=== PATIENT | female | born 1960 | race Two or more races ===

== ENCOUNTER 2016-10-15 16:18 | Emergency (ER) | payer OTHER ==
[~2016-10-15] VITALS: Ht 160 cm; Wt 83.5 kg
[2016-10-15 17:30] VITALS: BP 165/81
--- NOTE | 2016-10-15 17:48 | PHYS DOC ---
Past Medical History Past Medical History: Anemia, Diabetes-Type II, High Cholesterol, Hypertension Past Surgical History: Other Additional Past Surgical Histo: abd surgery "to remove clots around umbilical area" Alcohol Use: None Drug Use: None Adult General Chief Complaint Chief Complaint: NOSEBLEED HPI HPI 55-year-old female with left nares epistaxis. The patient is been having epistaxis for greater than one week. She has been seen in multiple emergency departments and had multiple Rhino Rocket instruments placed with moderate relief. She recently was able to get into her ENT doctors office at [facility] where they performed a nasal cautery with nasal packing. She has been having mild intermittent nose bleeding since then. Currently she denies any nose bleeding. Location left neck. Duration intermittent. Alleviated by packing. Review of systems is negative for chest pain shortness of breath abdominal pain lightheadedness All other review of systems is negative unless otherwise noted in history of present illness. Review of Systems Review of Systems SEE ABOVE. Allergies Allergies Allergies Coded Allergies Type Severity Reaction Last Updated Verified acetaminophen Allergy Intermediate hives 10/15/16 Yes Physical Exam Physical Exam Constitutional: Well developed, well nourished, no acute distress, non-toxic appearance. [] HENT: Normocephalic, atraumatic, bilateral external ears normal, oropharynx moist, no oral exudates, the patient's left and there is tightly packed with gauze without any evidence of bleeding. She denies any bleeding from the posterior aspect of her nasopharynx region. Eyes: PERRLA, EOMI, conjunctiva normal, no discharge. Neck: Normal range of motion, no tenderness, supple, no stridor. [] Cardiovascular:Heart rate regular rhythm, no murmur Lungs & Thorax: Bilateral breath sounds clear to auscultation [] Abdomen: Bowel sounds normal, soft, no tenderness, no masses, no pulsatile masses. Skin: Warm, dry, no erythema, no rash. [] Back: No tenderness, no CVA tenderness. [] Extremities: No tenderness, no cyanosis, no clubbing, ROM intact, no edema. Neurologic: Alert and oriented X 3, normal motor function, normal sensory function, no focal deficits noted. Psychologic: Affect normal, judgement normal, mood normal. [] Current Patient Data Vital Signs Vital Signs Date Time Temp Pulse Resp B/P Pulse Ox O2 Delivery O2 Flow Rate FiO2 2/21/17 17:30 97.9 103 20 95 Room Air 97.9 EKG EKG [] Radiology/Procedures Radiology/Procedures [] Course & Med Decision Making Course & Med Decision Making Pertinent Labs and Imaging studies reviewed. (See chart for details) [] 55-year-old female presenting to the emergency department today with intermittent nose bleeding which currently is not present. She currently has an manager of network at [facility]. Currently the patient has tight packing in her left neck. I discussed the options including removal of the packing and placing a Rhino Rocket. I explained to her that this probably is not the best option is the packing that the manager of network placed is probably working better than an inch should mention our emergency department abuse. Currently the patient is not having epistaxis. I recommended she follow up with her manager of network tomorrow morning for further evaluation workup and care. The patient desired to go to [facility] emergency department to be evaluated. I called their emergency department and explained to their doctor that she would be coming by private vehicle. The patient is currently stable for transfer. Dragon Disclaimer Dragon Disclaimer This electronic medical record was generated, in whole or in part, using a voice recognition dictation system. Departure Departure Impression: Primary Impression: Epistaxis Disposition: 01 HOME, SELF-CARE Condition: STABLE Referrals: PIA DAMON MD (PCP) Patient Instructions: Nosebleed Additional Instructions: Thank you for allowing us to participate in your care today. Follow-up with your ENT tomorrow morning for evaluation and care. If you do not have a primary care provider you can ask for a list of our primary care providers. Return to the emergency department you have any new or concerning findings. This should be evaluated by the primary care physician and any necessary consulting services for continued management within a few days after discharge. Return to emergency room if you have any new or concerning symptoms including but not limited to fever, chills, nausea, vomiting, intractable pain, any new rashes, chest pain, shortness of air, uncontrolled bleeding, difficulty breathing, and/or vision loss. LUCINA RICE MD Oct 15, 2016 17:48
== END 2016-10-15 18:01 | disposition home or self-care (01) ==
LOC: ER 16:18
DX: R04.0 Epistaxis (principal); E11.9 Type 2 diabetes mellitus without complications; E78.00 Pure hypercholesterolemia, unspecified; I10 Essential (primary) hypertension; Z88.8 Allergy status to other drugs, medicaments and biological substances
CPT/HCPCS: 99281

== ENCOUNTER → 2017-06-24 | Outpatient (CLI) | payer OTHER ==
--- NOTE | 2017-06-24 10:10 | RAD ---
DATE: 06/24/2017 EXAM: DIGITAL SCREEN BILAT W/CAD HISTORY: Routine screening COMPARISON: 05/29/2016 This study was interpreted with the benefit of Computerized Aided Detection (CAD). The breast parenchyma shows scattered fibroglandular densities. Breast parenchyma level B. FINDINGS: No new or enlarging breast densities are seen. Benign type calcifications are present. No suspicious microcalcifications have developed. IMPRESSION: Stable mammograms without evidence of malignancy. BI-RADS CATEGORY: 2 BENIGN FINDING(S) RECOMMENDED FOLLOW-UP: 12M 12 MONTH FOLLOW-UP PQRS compliance statement: Patient information was entered into a reminder system with a target due date for the next mammogram. Mammography is a sensitive method for finding small breast cancers, but it does not detect them all and is not a substitute for careful clinical examination. A negative mammogram does not negate a clinically suspicious finding and should not result in delay in biopsying a clinically suspicious abnormality. "Our facility is accredited by the [employer] Mammography Program."
== END | disposition home or self-care (01) ==
LOC: MAMMO 07:55
PROVIDERS: ATTEND Family Medicine
DX: Z12.31 Encounter for screening mammogram for malignant neoplasm of breast (principal)
CPT/HCPCS: G0202; 77067

== ENCOUNTER → 2018-07-23 | Outpatient (CLI) | payer MEDICARE, OTHER ==
--- NOTE | 2018-07-23 08:42 | RAD ---
DATE: 07/23/2018 EXAM: DIGITAL SCREEN BILAT W/CAD HISTORY: Routine screening COMPARISON: 06/24/2017 This study was interpreted with the benefit of Computerized Aided Detection (CAD). Breast Density: SCATTERED The breast parenchyma shows scattered fibroglandular densities. Breast parenchyma level B. FINDINGS: No new or enlarging breast densities are evident. Scattered benign type calcifications are again seen. No suspicious microcalcifications have developed. IMPRESSION: There is no mammographic evidence of malignancy in either breast. BI-RADS CATEGORY: 2 BENIGN FINDING(S) RECOMMENDED FOLLOW-UP: 12M 12 MONTH FOLLOW-UP PQRS compliance statement: Patient information was entered into a reminder system with a target due date for the next mammogram. Mammography is a sensitive method for finding small breast cancers, but it does not detect them all and is not a substitute for careful clinical examination. A negative mammogram does not negate a clinically suspicious finding and should not result in delay in biopsying a clinically suspicious abnormality. "Our facility is accredited by the [employer] Mammography [employer]."
== END | disposition home or self-care (01) ==
LOC: MAMMO 07:42
PROVIDERS: ATTEND Family Medicine
DX: Z12.31 Encounter for screening mammogram for malignant neoplasm of breast (principal)
CPT/HCPCS: 77067

== ENCOUNTER → 2019-08-02 | Outpatient (CLI) | payer MEDICARE ==
--- NOTE | 2019-08-03 20:02 | RAD ---
DATE: 08/02/2019 EXAM: DIGITAL SCREEN BILAT W/CAD HISTORY: Routine screening COMPARISON: 04/13/2015, 05/29/2016, 06/24/2017, 07/23/2018 This study was interpreted with the benefit of Computerized Aided Detection (CAD). Breast Density: SCATTERED The breast parenchyma shows scattered fibroglandular densities. Breast parenchyma level B. FINDINGS: Benign calcification is present. No masses or distortion in the interval. IMPRESSION: Stable BI-RADS CATEGORY: 1 NEGATIVE RECOMMENDED FOLLOW-UP: 12M 12 MONTH FOLLOW-UP PQRS compliance statement: Patient information was entered into a reminder system with a target due date for the next mammogram. Mammography is a sensitive method for finding small breast cancers, but it does not detect them all and is not a substitute for careful clinical examination. A negative mammogram does not negate a clinically suspicious finding and should not result in delay in biopsying a clinically suspicious abnormality. "Our facility is accredited by the [employer] Mammography Program."
== END | disposition home or self-care (01) ==
LOC: MAMMO 07:50
PROVIDERS: ATTEND Family Medicine
DX: Z12.31 Encounter for screening mammogram for malignant neoplasm of breast (principal); N64.89 Other specified disorders of breast
CPT/HCPCS: 77067

== ENCOUNTER → 2020-08-03 | Outpatient (CLI) | payer MEDICARE ==
--- NOTE | 2020-08-03 15:44 | RAD ---
Examination: MG BILAT SCREEN+SHIRA History: Reason: SCREENING MAMMOGRAM 3D / Spl. Instructions: / History: Comparison/Correlation: 08/02/2019, 09/22/2017, 06/24/2017 Technique: MLO and CC digital tomosynthesis (3D) images obtained. Radiologist reviewed these images on dedicated workstation. Findings: Breast Tissue Density B : There are scattered areas of fibroglandular density. There are no dominant masses, suspicious microcalcifications, or architectural distortion. IMPRESSION: No mammographic evidence of malignancy. Recommend routine screening. BI-RADS category 1: Negative. The images were reviewed with computer-aided detection. Patient information is entered into reminder system with a target due date for the next screening [facility] m[facility]. Mammography is the most sensitive method for finding small breast cancers, but it does not detect the m all and is not a substitute for careful clinical examination. A negative mammogram does not negate a clinically suspicious finding and should not result in delay in biopsying a clinically suspicious a bnormality. "Our facility is accredited by the [employer] Mammography Program." Electronically signed by: Aguilar Castelan MD (08/03/2020 3:42 PM) [id number]
== END ==
LOC: MAMMO 07:42
PROVIDERS: ATTEND Internal Medicine
DX: Z12.31 Encounter for screening mammogram for malignant neoplasm of breast (principal)
CPT/HCPCS: 77063; 77067

== ENCOUNTER → 2021-04-23 | Outpatient (CLI) | payer MEDICARE, MEDICAID ==
--- NOTE | 2021-04-23 15:27 | RAD ---
CLINICAL INDICATION: FABIANA DHALIWAL, who is 60 years of age, presents for imaging evaluation of a pal pable area of concern within both breasts COMPARISON: Prior mammographic imaging dating back to TECHNIQUE: Diagnostic views of the bilateral breast were obtained, utilizing digital technique. BREAST COMPOSITION: The breast tissue is heterogenously dense, which could obscure detection of small masses. MAMMOGRAM FINDINGS: There are no suspicious masses, microcalcifications, or architectural distortion to suggest malignanc y in the right breast. The visualized axilla appears unremarkable. Given the palpable area of concern, ultrasound was performed. ULTRASOUND FINDINGS: Targeted ultrasound of the palpable area of concern was performed. Right breast: 6:00 position, 4 cm from the nipple: A 1.4 x 0.8 x 1.6 cm hypoechoic mass with central echogenicity, likely lymph node Additionally prominent lymph nodes are seen in the left axilla. IMPRESSION: 1. Right breast probably benign mass for which follow up is recommended. RECOMMENDATION: In the absence of new clinical symptoms or change in physical exam, short term follow up diagnostic u ltrasound examination is recommended in 6 months to assess for interval stability. BIRADS 3: PROBABLY BENIGN Electronically signed by: Rony Otto MD (04/23/2021 3:24 PM) [id number]
== END ==
LOC: MAMMO 09:15
PROVIDERS: ATTEND Family Medicine
DX: N63.13 Unspecified lump in the right breast, lower outer quadrant (principal)
CPT/HCPCS: 76641; 77066; G0279; 77062

== ENCOUNTER → 2021-10-22 | Outpatient (CLI) | payer OTHER, MEDICAID ==
--- NOTE | 2021-10-22 08:51 | RAD ---
DIAGNOSTIC RIGHT BREAST ULTRASOUND INDICATION: Follow-up probably benign right breast. COMPARISON: 04/23/2021 FINDINGS: Ultrasound of the right breast in the 6:00 radial and the axilla is performed. The axilla there is a lymph node measuring approximately 1.8 x 0.6 x 1.5 cm with preserved fatty hilum and cortex. No mass or abnormality identified in the 6:00 position. The patient had palpable concern at the current time. IMPRESSION: 1. No significant interval change in probably benign right axillary lymph node. ASSESSMENT: BI-RADS 3: PROBABLY BENIGN Recommend 6 month short interval follow-up bilateral mammogram and right breast diagnostic ultrasound to coincide with normal screening interval. Cysts The facility will notify the patient of the results via mail. Patient information will be entered int o the mammography reminder system with a target recall date for the next mammogram. A reminder letter will be generated by the facility. Electronically signed by: Tommy Garcia MD (10/22/2021 8:48 AM) [id number]
== END ==
LOC: US 08:24
PROVIDERS: ATTEND Family Medicine
DX: N64.89 Other specified disorders of breast (principal)
CPT/HCPCS: 76641